=== PATIENT | female | born 1970 | race Caucasian/White ===

== ENCOUNTER 2024-06-03 14:34 | Emergency (ER) | payer OTHER ==
[2024-06-03] MEDS: Lidocaine 1% 5 ML VIAL INJECT ONE ×2 (15:35→16:44)
[2024-06-03] MEDS: Sodium Chloride 0.9% 1,000 ML IV ONE (16:41)
[2024-06-03] MEDS ORDERED: Bacitracin Oint 1 GM U/D Packet TOP ONE (17:08)
[2024-06-03] MEDS: Bacitracin/Neomycin/Polymyxin B Oint 28.4 GM Tube ONE (17:13)
[2024-06-03] MEDS: Bacitracin/Neomycin/Polymyxin B Oint 28.4 GM Tube TOP ONE (17:13)
[2024-06-03] MEDS: Diphtheria,Pertussis(Acell),Tetanus Vaccine 0.5 ML Syringe IM ONE (17:27)
== END 2024-06-03 17:32 | disposition home or self-care (01) ==
LOC: DL.ED 14:34
DX: S61.012A Laceration without foreign body of left thumb without damage to nail, initial encounter (principal); Z23 Encounter for immunization; Z79.899 Other long term (current) drug therapy; Z90.710 Acquired absence of both cervix and uterus; W26.0XXA Contact with knife, initial encounter
CPT/HCPCS: 12001; 73120; 82947; 90471; 90715; 99283; A9270; J7030; J3490